=== PATIENT | female | born 1980 | race Caucasian/White ===

== ENCOUNTER 2019-08-01 13:56 | Emergency (ER) | payer BC ==
[~2019-08-01] VITALS: Ht 162.6 cm; Wt 70.5 kg
[~2019-08-01 13:56] MED LIST: BIRTH CONTROL MED; DEPO-PROVER150 MG/ML IM; LORTAB 5 OR; LORTAB 7.57.5 MG PO; MULTIVITAM10 OR; YASMIN 281 TAB OR; YAZ1 TAB PO; ZITHROMAX250 MG PO
[2019-08-01 18:15] VITALS: BP 139/74
== END 2019-08-01 18:15 | disposition home or self-care (01) | DRG 556 ==
LOC: ED 13:56
DX: M25.521 Pain in right elbow (principal)